=== PATIENT | male | born 1990 | race Caucasian/White ===

== ENCOUNTER 2017-03-19 20:52 | Emergency (ER) | payer MEDICAID ==
[~2017-03-19] VITALS: Ht 188 cm; Wt 81.6 kg
[2017-03-19 21:09] VITALS: BP 133/78
[2017-03-19 22:56] LABS: APPEARANCE,URINE CLOUDY (CLEAR); BILIRUBIN,URINE NEGATIVE (NEGATIVE); BLOOD, URINE 1+ (NEGATIVE); COLOR,URINE YELLOW (YELLOW); LEUKOCYTE ESTERASE ,URINE NEGATIVE (NEGATIVE); NITRITE, URINE NEGATIVE (NEGATIVE); UGLUCOSE NEGATIVE (NEGATIVE)
[2017-03-19 23:10] LABS: URINE AMORPHOUS URATE 4+ /HPF (None Seen)
--- NOTE | 2017-03-19 23:47 | NUR ---
Patient ambulated to bed 03
--- NOTE | 2017-03-19 23:50 | NUR ---
26 Y/O M W/C/O BLOOD IN URINE AND BURNING PAIN AND FREQUENTCY WITH URINATION. PT DENIES ANY FEVER OR CHILLS. NO MED HX, NO S/S OF DISTRESS PRESENT AT THE MOMENT. ER MADE AWARE.
[2017-03-20] MEDS ORDERED: cefTRIAXone 250 MG in LIDOCAINE 1% ED 0.9 ML IM ONE (00:15)
[2017-03-20] MEDS ORDERED: AZITHROMYCIN 250 MG TAB PO ONE (00:15)
--- NOTE | 2017-03-20 00:15 | NUR ---
PT RESTING IN BED, VSS, NO S/S OF DISTRESS NOTED AT THE MOMENT.WILL CONT TO MONITOR.
[2017-03-20 00:49] VITALS: BP 138/86
--- NOTE | 2017-03-20 00:49 | NUR ---
Patient discharged with v/s stable. Written and verbal after care instructions given and explained. Patient verbalized understanding. Ambulatory with steady gait. All questions addressed prior to discharge. Advised to follow up with PMD.
[2017-03-22 09:58] LABS: CHLAMYDIA TRACHOMATIS AMP DNA POSITIVE (NEGATIVE)
== END 2017-03-20 00:49 | disposition home or self-care (01) ==
LOC: MED 20:52
DX: N39.0 Urinary tract infection, site not specified (principal); A54.9 Gonococcal infection, unspecified
CPT/HCPCS: 36415; 81001; 87086; 87491; 96372; 99284; J0696; J2001

== ENCOUNTER 2019-04-21 16:41 | Emergency (ER) | payer MEDICAID ==
[~2019-04-21] VITALS: Ht 182.9 cm; Wt 72.6 kg
[2019-04-21 16:50] VITALS: BP 138/82
[2019-04-21] MEDS: ACETAMINOPHEN 325 MG TAB PO ONE (17:38)
[2019-04-21 18:30] LABS: BASOPHILS % (AUTO) 0.2 % (0.0-2.0); EOSINOPHILS % (AUTO) 0.2 % (0.0-4.0); HEMATOCRIT 48.2 % (36-52); HEMOGLOBIN 16.1 g/dL (12.0-18.0); LYMPHOCYTES # (AUTO) 1.3 K/uL (2.0-11.5); LYMPHOCYTES % (AUTO) 6.4 % (20.5-51.1); MEAN CORPUSCULAR HEMOGLOBIN 30 pg (27-31); MEAN CORPUSCULAR HGB CONC 33 g/dL (33-37); MEAN CORPUSCULAR VOLUME 89.9 fL (80-94); MONOCYTES % (AUTO) 9.7 % (1.7-9.3); NEUTROPHILS # (AUTO) 17.2 K/uL (1.8-7.7); NEUTROPHILS % (AUTO) 83.5 % (42.2-75.2); PLATELET COUNT (AUTO) 315 K/uL (140-450); RED BLOOD CELL COUNT(AUTO) 5.36 MIL/uL (4.20-6.10); RED CELL DISTRIBUTION WIDTH 13.1 % (11.6-13.7); WHITE BLOOD COUNT (AUTO) 20.6 K/uL (4.8-10.8)
[2019-04-21] MEDS: NACL 0.9% 1,000 ML IV ONE ×2 (18:39→19:48)
[2019-04-21] MEDS: DEXAMETHASONE 10 MG/ML VIAL IVP ONE (18:40)
[2019-04-21] MEDS: KETOROLAC 30 MG/ML VIAL IVP ONE (18:40)
[2019-04-21 18:41] LABS: PROTHROMBIN TIME 10.1 secs (10.8-13.4)
[2019-04-21] MEDS: ONDANSETRON 4 MG/2 ML VIAL IVP ONE (18:41)
[2019-04-21 18:45] LABS: ALBUMIN 3.6 g/dL (3.4-5.0); ANION GAP 14.4 (8-16); CARBON DIOXIDE 26.9 mmol/L (21-32); CREATININE 0.9 mg/dL (0.7-1.3); POTASSIUM 3.3 mmol/L (3.5-5.1); TOTAL BILIRUBIN 1.1 mg/dL (0.0-1.0)
[2019-04-21] MEDS ORDERED: CLINDAMYCIN 900 MG/6 ML VIAL IV ONE (19:41)
[2019-04-21] MEDS: CLINDAMYCIN 900 MG in DEXTROSE 5% 100 ML IV ONE (19:46)
[2019-04-21 21:59] VITALS: BP 96/55
== END 2019-04-21 22:03 | disposition short-term general hospital (02) ==
LOC: MED 16:41
DX: J36 Peritonsillar abscess (principal); D72.829 Elevated white blood cell count, unspecified; F15.10 Other stimulant abuse, uncomplicated; F17.210 Nicotine dependence, cigarettes, uncomplicated
CPT/HCPCS: 36415; 70360; 70491; 80053; 83605; 85025; 85610; 87040; 96365; 96366; 96375; 99285; J1100; J1885; J2405; J3490; J7030; Q9967; 96361

== ENCOUNTER 2020-03-22 18:20 | Emergency (ER) | payer SELFPAY ==
[~2020-03-22] VITALS: Ht 188 cm; Wt 79.4 kg
[2020-03-22 18:27] VITALS: BP 145/99
[2020-03-22 19:21] LABS: APPEARANCE,URINE CLEAR (CLEAR); BILIRUBIN,URINE NEGATIVE (NEGATIVE); BLOOD, URINE NEGATIVE (NEGATIVE); COLOR,URINE YELLOW (YELLOW); LEUKOCYTE ESTERASE ,URINE NEGATIVE (NEGATIVE); NITRITE, URINE NEGATIVE (NEGATIVE); UGLUCOSE NEGATIVE (NEGATIVE)
[2020-03-22] MEDS ORDERED: cefTRIAXone 500 MG VIAL ONE (19:57)
[2020-03-22] MEDS ORDERED: LIDOCAINE MPF 1% 5 ML ONE (19:57)
[2020-03-22] MEDS: DOXYCYCLINE 100 MG CAP PO SCH (20:08)
[2020-03-22] MEDS: cefTRIAXone 500 MG in LIDOCAINE MPF 1% 1 ML IM ONE (20:08)
[2020-03-22 20:28] VITALS: BP 145/78
[2020-03-26 06:07] LABS: CHLAMYDIA TRACHOMATIS AMP DNA Positive (Negative)
== END 2020-03-22 20:28 | disposition home or self-care (01) ==
LOC: MED 18:20
DX: A64 Unspecified sexually transmitted disease (principal)
CPT/HCPCS: 36415; 81003; 96372; 99283; J0696; J2001

== ENCOUNTER 2020-04-24 02:28 | Emergency (ER) | payer SELFPAY ==
[~2020-04-24] VITALS: Ht 188 cm; Wt 79.4 kg
--- NOTE | 2020-04-24 02:30 | NUR ---
to ED bed 07.
[2020-04-24 02:31] VITALS: BP 147/58
--- NOTE | 2020-04-24 02:58 | NUR ---
30 year old male coming in for c/o penile discharge x 1 day. states discharge appears to be a color of green and white. states, " I think I know what this is, this has happened to me before." pt admits to + unprotected sexual acts. denies dysuria. denies urinary hesitancy. denies any other s/sx. denies injury or trauma. awaiting MSE. pmhx: denies nka
[2020-04-24] MEDS ORDERED: cefTRIAXone 250 MG VIAL ONE (03:02)
[2020-04-24] MEDS ORDERED: LIDOCAINE MPF 1% 5 ML ONE (03:02)
--- NOTE | 2020-04-24 03:02 | NUR ---
Dr. Orozco at bedside assessing pt.
[2020-04-24] MEDS: cefTRIAXone 250 MG in LIDOCAINE MPF 1% 0.9 ML IM STA (03:16)
[2020-04-24 03:17] VITALS: BP 147/58
[2020-04-24] MEDS: AZITHROMYCIN 250 MG TAB PO STA (03:17)
[2020-04-26 18:07] LABS: CHLAMYDIA TRACHOMATIS AMP DNA POSITIVE (NEGATIVE)
== END 2020-04-24 03:17 | disposition home or self-care (01) ==
LOC: MED 02:28
DX: A54.09 Other gonococcal infection of lower genitourinary tract (principal); A74.9 Chlamydial infection, unspecified
CPT/HCPCS: 36415; 96372; 99283; J0696; J2001; 87491